=== PATIENT | female | born 1945 | race Caucasian/White ===

== ENCOUNTER → 2017-11-22 | Outpatient (CLI) | payer MEDICARE, OTHER ==
[~2017-11-22] MED LIST: ALBU90OI; Augmentin 875-1 EACH PO; CIME400; DESVENLAFAXINE25 MG PO; ESOM20; ESTR1; FLUSAL2505; LEVSOD88 PO; LOSARTAN-HCTZ1 EACH PO; NAPR550 PO; OMEPRAZOLE MAGN20 MG PO; ONDA8 PO; OXYACE5T PO; ZOLP10 PO; Zofran Odt4 MG SL
== END ==
LOC: LAB 11:07 → LAB SHORT 11:07
DX: N39.0 Urinary tract infection, site not specified (principal)
CPT/HCPCS: 87077; 87086; 87186

== ENCOUNTER 2018-07-30 06:55 | Inpatient (IN) | payer MEDICARE, OTHER ==
[~2018-07-30] VITALS: Ht 165.1 cm; Wt 79.4 kg
[~2018-07-30 06:55] MED LIST changes: +Flagyl500 MG PO; +OSCIMIN0.125 M1 PO; +[UNRECOGNIZED DRUG - OTHER] PO
--- NOTE | 2018-07-30 09:25 | NUR ---
Ambulatory in Day Surgery Surgical site prepped with 2% Chlorhexidine cloth wipe. Patient states colon prep results clear. History, Chart, Medications and Allergies reviewed before start of procedure.Lungs clear T/O to Auscultation. Patient confirms NPO status and agrees with scheduled surgery. Pre-Op teaching done. Pt verbalizes understanding. Patient reports completing Chlorhexadine shower X2 prior to admission to hospital. CONFIRMS NPO/PREP W/BOWL PREP AND ABX/SHOWERS AND PROCEDURE
--- NOTE | 2018-07-30 17:15 | NUR ---
ARRIVED TO ROOM VIA BED FROM PACU S/P LAP RIGHT EDITH COLECTOMY. PT DROWSY AND ORIENTED. STATES PAIN 6-7/10 AND STILL HAVING SOME NAUSEA. EPIDURAL IN PLACE AND SECURED BUT NUMBNESS AT TOP OF THIGHS. ABD STERI STRIPS INTACT WITH MIDLINE PROVENA AND ABD BINDER ON. IVF AND IV ABX INFUSING. ZEPEDA DRAINING C/Y URINE. CALLED DR. HALL AND OBTAINED NEW ORDER FOR PHENERGAN. FAMILY PRESENT. CALL LIGHT IN REACH.
--- NOTE | 2018-07-30 17:41 | NUR ---
DOING MUCH BETTER. 12.5MG MORE OF PHENERGAN WAS GIVEN AND STATES PAIN IS MINIMAL BUT STILL RATES IT 12/16. PT IS DOZING OFF/ON. VS REMAIN STABLE. CURRENTLY ON 2L NC. FAMILY IS PRESENT. CALL LIGHT IN REACH.
--- NOTE | 2018-07-31 01:34 | NUR ---
0134: EPIDURAL ASSESMENT WNL AND PT DENIES PAIN AT THIS TIME. SENSATIONS DECREASED T8-L3. PT TOLERATING SIPS AND ICE CHIPS. ZEPEDA PATENT WITH MINIMAL YELLOW URINE OUTPUT, WILL CONTINUE TO MONITOR. CALL LIGHT IN REACH..
--- NOTE | 2018-07-31 03:24 | NUR ---
RN NOTIFIED OF URINE OUTPUT AND COLOR.
[2018-07-31 04:40] LABS: BASOPHILS PERCENT AUTO 0 % (0-2); EOSINOPHILS PERCENT AUTO 0 % (0-6); Hematocrit 33.9 % (33.0-51.0); Hemoglobin 10.7 g/dL (11.5-16.0); IMMATURE GRAN ABSOLUTE AUTO 0.03 K/mm3 (0.00-0.10); IMMATURE GRAN PERCENT AUTO 0 % (0-1); LYMPHOCYTES ABSOLUTE AUTO 1.18 K/mm3 (0.84-5.20); LYMPHOCYTES PERCENT AUTO 13 % (21-46); MONOCYTES ABSOLUTE AUTO 1.03 K/mm3 (0.16-1.47); MONOCYTES PERCENT AUTO 11 % (4-13); Mean Corpuscular HGB 29.3 pg (26.0-34.0); Mean Corpuscular HGB Conc 31.6 g/dL (31.5-36.5); Mean Corpuscular Volume 93 fL (80-100); Mean Platelet Volume 9.2 fL (9.1-12.4); NEUTROPHILS ABSOLUTE AUTO 7.18 K/mm3 (1.96-9.15); NEUTROPHILS PERCENT AUTO 76 % (41-73); Platelet Count 350 K/mm3 (150-400); RDW Coefficient Variation 12.7 % (11.7-14.2); RDW Standard Deviation 43.7 fL (35.1-46.3); Red Blood Cell Count 3.65 M/mm3 (3.80-5.20); White Blood Cell Count 9.42 K/mm3 (4.00-11.30)
[2018-07-31 04:49] LABS: Bun/Creatinine Ratio 16.5 (12.0-20.0); Calcium, Blood 7.8 mg/dL (8.5-10.1); Creatinine, Blood 1.03 mg/dL (0.40-1.00); Potassium, Blood 3.7 mmol/L (3.5-5.5)
--- NOTE | 2018-07-31 06:52 | NUR ---
SUMMARY: POD [address] HALL. HOURLY DERMATOMES CHECKS WITH EPIDURAL UNTIL 1630 THIS DAY. PT PAIN WELL CONTROLLED WITH EPIDURAL PRN TORDAL X1 THIS SHIFT. PT TOLERATING SIPS AND CHIPS AND DENIES NAUSEA. ZEPEDA OUTPUT CLEAR, YELLOW URINE AND WOUND VAC TUBING REMAINS EMPTY. PT VSS, AFEBRILE AND WEAK COUGH EFFORT. 2L O2 VIA NC WHILE ASLEEP TO MAINTAIN SPO2>92%. CONTINUE TO MONITOR FOR PAIN AND OUTPUT.
--- NOTE | 2018-07-31 18:00 | NUR ---
shift summary: vss, no acute changes. pt tolerated po intake of clear liquids per md order, no n/v. pt's q1 hr epidural vss and complete. pt's dermatome checks show full feeling beginning of shift. approx 1400 pt reports R leg numb and unable to move. reported to MD. pt states pain controlled per epidural orders. pt remained a/o x 4, pleasant/cooperative. multiple family members and friends visited this shift. pt up in chair for lunch and dinner. carter catheter remained patent/draining dark tea urine, >400 ml. fluids per mar continued.
--- NOTE | 2018-08-01 07:34 | NUR ---
SUMMARY: POD [address] HALL. VSS, AFEBRILE, 2L O2 VIA NC WHILE ASLEEP. TOLERATING CLEAR LIQ DIET, DENIES NAUSEA, HYPOACTIVE BT X4 AND PASSING GAS. SURGICAL DRESSINGS APPEAR & DRAIN APPEAR C/D/I AND COVERED WITH ABD BINDER. PT DID NOT SLEEP WELL, REPORTS NIGHTMARES. ANTICIPATE PT/OT LATER THIS DAY AND PROBABLE DC LATER.
--- NOTE | 2018-08-01 18:14 | NUR ---
SHIFT SUMMARY PAIN HAS BEEN MANAGED WITH EPIDURAL THIS SHIFT. PT CONTINUES TO HAVE NUMBNESS TO HER R THIGH R/T THE EPIDURAL; RATE WAS DECREASED IN AN EFFORT TO REDUCE NUMBNESS. PLAN FOR EPIDURAL TO BE REMOVED TOMORROW. PT IS PASSING FLATUS. VSS. WILL CONTINUE TO MONITOR UNTIL REPORT TO ONCOMING RN.
--- NOTE | 2018-08-01 23:00 | NUR ---
PT REP NUMBNESS FROM RIGHT HIP TO KNEE. RLE IS WEAKER THAN LEFT. PT HAS FULL SENSATION TO ABD. EPIDURAL SITE WNL.
--- NOTE | 2018-08-02 01:23 | NUR ---
O2 SATS: PT REMOVED NC DURING SLEEP, PT O2 NOTED TO BE 83-84% ON RA WHILE SLEEPING. NC REPLACED, O2 INC TO 3L TO KEEPS SAT 90-92%. RESP E/U, OTHER VSS. WILL CONT TO MONITOR AND TITRATE PRN
--- NOTE | 2018-08-02 05:12 | NUR ---
POD 3 S/P LAP COLECTOMY. PT VSS T/O NIGHT, PT DID REQUIRE 2-3L O2NC WHILE SLEEPING TO KEEP SATS >90% DRESSING CDI. EPIDURAL SITE WNL. PT REP NO CHANGES IN SENSATION TO RLE. PT REP PAIN PRESTON W/EPIDURAL AND TORADOL. PT UP OOB W/FWW+2 ASSIST R/T WEAKNESS. PLAN TO D/C EPIDURAL THIS AM. PT USING CALL LIGHT FOR ASSISTANCE, WILL CONT TO MONITOR UNTIL REP GIVEN TO ONCOMING RN.
--- NOTE | 2018-08-02 18:41 | NUR ---
SHIFT SUMMARY PAIN HAS BEEN MANAGED WITH PO PAIN MEDICATION SINCE EPIDURAL WAS REMOVED. SHE HAS TOLERATED FULL LIQUID DIET WELL. SHE CONTINUES TO PASS FLATUS. SHE WAS ABLE TO AMBULATE IN THE [place] WITH ENCOURAGEMENT. ZEPEDA CATH OUT AT 1500. WILL CONTINUE TO MONITOR.
--- NOTE | 2018-08-03 06:10 | NUR ---
NO CHANGES THIS SHIFT. PAIN WELL MANAGED WITH PRN PAIN MEDS. AMBULATED TO BATHROOM SEVERAL TIMES THROUGHOUT SHIFT, TOLERATED WELL. GOOD URINE OUTPUT NOTED SINCE ZEPEDA REMOVAL. DENIES PAIN, DISCOMFORT, OR FURTHER NEEDS AT THIS TIME. SAFETY MEASURES IN PLACE. WILL CONTINUE TO MONITOR.
--- NOTE | 2018-08-03 18:06 | NUR ---
SHIFT SUMMARY PT EATING AND DRINKING. PT BEEN RESTING MOST OF DAY. PT BEEN UP OOB AT TIMES. PT USING CALL LIGHT APPR. YVES MCKINNON TO SEE PT TODAY. PT BEEN ASSISTED WITH ADL'S PRN.
--- NOTE | 2018-08-03 20:15 | NUR ---
MEDICATED FOR PAIN PER MD ORDERS, SAFETY MEASURES IN PLACE. WILL CONTINUE TO MONITOR.
--- NOTE | 2018-08-04 04:58 | NUR ---
NO CHANGES THIS SHIFT. PAIN WELL MANAGED WITH PRN PAIN MEDS. STATES THAT SHE IS LOOKING FORWARD TO GOING HOME SOON. DENIES PAIN, DISCOMFORT, OR FURTHER NEEDS AT THIS TIME. SAFETY MEASURES IN PLACE. WILL CONTINUE TO MONITOR.
--- NOTE | 2018-08-04 12:18 | NUR ---
DR HALL RECENTLY HERE TO SEE PT.
--- NOTE | 2018-08-04 18:11 | NUR ---
SHIFT SUMMARY PT EATING AND DRINKING. PT HAVING NAUSEA OFF AND ON. PT HAD SHOWER TODAY. PT BEEN ASSISTED WITH ADL'S AND MED FOR PAIN. DR HALL IN TO SEE PT TODAY.
--- NOTE | 2018-08-05 06:16 | NUR ---
NO CHANGES THIS SHIFT. NO C/O PAIN THIS SHIFT. NAUSEA MANAGED WITH ODT ZOFRAN. STATES THAT SHE IS LOOKING FORWARD TO GOING HOME SOON. DENIES PAIN, DISCOMFORT, OR FURTHER NEEDS AT THIS TIME. SAFETY MEASURES IN PLACE. WILL CONTINUE TO MONITOR.
[2018-08-05] MEDS ORDERED: HYDR1TAB94 PO (16:24)
[2018-08-05] MEDS ORDERED: ONDA4ODT MM (16:24)
--- NOTE | 2018-08-05 17:02 | NUR ---
DISCHARGE PT PROVIDED WITH WRITTEN AND VERBAL DISCHARGE INSTRUCTIONS. SHE REPORTED UNDERSTANDING AFTER QUESTIONS WERE ANSWERED. VSS. PT ESCORTED OUT IN W/C BY KEIRY PAZ.
== END 2018-08-05 17:00 | disposition home or self-care (01) | DRG 331 ==
LOC: SURS 06:55 → PRE IP 08:30 → SURS 16:07
PROVIDERS: ADMIT Surgery
PROC: 0DTF4ZZ Resection of Right Large Intestine, Percutaneous Endoscopic Approach (ICD-10-PCS; principal; 2018-07-30 10:15)
DX: R93.5 Abnormal findings on diagnostic imaging of other abdominal regions, including retroperitoneum (principal); I10 Essential (primary) hypertension; K21.9 Gastro-esophageal reflux disease without esophagitis; E03.9 Hypothyroidism, unspecified; Z88.8 Allergy status to other drugs, medicaments and biological substances
CPT/HCPCS: 36415; 80048; 85025; J0295; J1100; J1650; J1885; J2250; J2310; J2370; J2405; J2550; J2710; J3010; J7120

== ENCOUNTER → 2019-04-20 | Outpatient (CLI) | payer MEDICARE, OTHER ==
[~2019-04-20] MED LIST changes: +HYDR1TAB94 PO; +ONDA4ODT MM
== END | disposition home or self-care (01) ==
LOC: LAB SHORT 12:42 → LAB 12:42
DX: N39.0 Urinary tract infection, site not specified (principal)
CPT/HCPCS: 87077; 87086; 87186

== ENCOUNTER → 2020-10-02 | Outpatient (CLI) | payer MEDICARE, OTHER | END | disposition home or self-care (01) | LOC: LAB 16:22 → LAB SHORT 16:22 | DX: B35.1 Tinea unguium (principal) | CPT/HCPCS: 87102; 87106 ==

== ENCOUNTER → 2022-12-20 | Outpatient (CLI) | payer MEDICARE, OTHER | END | disposition home or self-care (01) | LOC: LAB SHORT 10:50 | DX: Z13.220 Encounter for screening for lipoid disorders (principal); Z13.228 Encounter for screening for other metabolic disorders; Z13.21 Encounter for screening for nutritional disorder; Z13.1 Encounter for screening for diabetes mellitus; K21.00 Gastro-esophageal reflux disease with esophagitis, without bleeding; M25.50 Pain in unspecified joint; R53.83 Other fatigue; R63.5 Abnormal weight gain | CPT/HCPCS: 85651 ==

== ENCOUNTER 2023-02-11 13:33 | Day surgery (SDC) | payer MEDICARE, OTHER ==
[~2023-02-11] VITALS: Ht 165.1 cm; Wt 76.9 kg
--- NOTE | 2023-02-11 14:39 | NUR ---
02/11/23 1439 Zandra Chen IN AT 1433 NOLAN IN AT 1434
[2023-02-11 15:37] VITALS: BP 134/63
--- NOTE | 2023-02-11 15:54 | NUR ---
02/11/23 1554 WIN FLORES IV REMOVED. PRESTON WELL. CANNULA INTACT. WNL
== END 2023-02-11 15:54 | disposition home or self-care (01) ==
LOC: ORSCSDS 13:33
PROVIDERS: Ophthalmology
PROC: 08RJ3JZ Replacement of Right Lens with Synthetic Substitute, Percutaneous Approach (ICD-10-PCS; principal; 2023-02-11 15:00)
DX: H25.13 Age-related nuclear cataract, bilateral (principal); H52.201 Unspecified astigmatism, right eye; E03.9 Hypothyroidism, unspecified; I10 Essential (primary) hypertension; Z86.73 Personal history of transient ischemic attack (TIA), and cerebral infarction without residual deficits; K21.9 Gastro-esophageal reflux disease without esophagitis; F32.A Depression, unspecified; Z79.899 Other long term (current) drug therapy
CPT/HCPCS: J2250; J3010; J3301; J7040; V2632

== ENCOUNTER 2023-02-18 11:46 | Day surgery (SDC) | payer MEDICARE, OTHER ==
[~2023-02-18] VITALS: Ht 165.1 cm; Wt 75.8 kg
--- NOTE | 2023-02-18 12:11 | NUR ---
02/18/23 1211 Martinez Rider CALL LIGHT WITHIN REACH. TETRACAINE IN LEFT EYE AT 1204 AND PLEDGETT IN AT 1206
[2023-02-18 13:35] VITALS: BP 113/63
--- NOTE | 2023-02-18 14:01 | NUR ---
02/18/23 1401 Devante Ross IV REMOVED INTACT. SITE WNL.
== END 2023-02-18 13:54 | disposition home or self-care (01) ==
LOC: ORSCSDS 11:46
PROVIDERS: Ophthalmology
PROC: 08RK3JZ Replacement of Left Lens with Synthetic Substitute, Percutaneous Approach (ICD-10-PCS; principal; 2023-02-18 13:00)
DX: H25.12 Age-related nuclear cataract, left eye (principal); H52.202 Unspecified astigmatism, left eye; Z96.1 Presence of intraocular lens; K21.9 Gastro-esophageal reflux disease without esophagitis; I10 Essential (primary) hypertension; E03.9 Hypothyroidism, unspecified; Z86.73 Personal history of transient ischemic attack (TIA), and cerebral infarction without residual deficits; Z79.899 Other long term (current) drug therapy
CPT/HCPCS: J2001; J2250; J3010; J3301; J7040; V2632

== ENCOUNTER → 2023-09-09 | Outpatient (CLI) | payer MEDICARE, OTHER | LOC: LAB SHORT 16:00 → LAB 16:00 | DX: N39.0 Urinary tract infection, site not specified (principal) | CPT/HCPCS: 87077; 87086; 87186 ==

== ENCOUNTER → 2023-12-01 | Outpatient (CLI) | payer MEDICARE, OTHER ==
[2023-12-01 16:26] LABS: Adenovirus F 40/41 Not Detected (NOT DETECT); Astrovirus Not Detected (NOT DETECT); Campylobacter Sp Not Detected (NOT DETECT); Cryptosporidium Not Detected (NOT DETECT); Cyclospora Cayetanensis Not Detected (NOT DETECT); E. Coli O157 Not Detected (NOT DETECT); Entamoeba Histolytica Not Detected (NOT DETECT); Enteroaggregative E. coli-EAEC Not Detected (NOT DETECT); Enteropathogenic E. coli-EPEC Not Detected (NOT DETECT); Enterotoxigenic E. coli-ETEC Not Detected (NOT DETECT); Giardia Lamblia Not Detected (NOT DETECT); Norovirus GI/GII Not Detected (NOT DETECT); Plesiomonas Shigelloides Not Detected (NOT DETECT); Rotavirus A Not Detected (NOT DETECT); Salmonella Sp Not Detected (NOT DETECT); Sapovirus Not Detected (NOT DETECT); Shiga Toxin-prod E. coli-STEC Not Detected (NOT DETECT); Shigella/Enteroin E. coli-EIEC Not Detected (NOT DETECT); Vibrio Cholerae Not Detected (NOT DETECT); Vibrio Sp Not Detected (NOT DETECT); Yersinia Enterocolitica Not Detected (NOT DETECT)
== END | disposition home or self-care (01) ==
LOC: LAB SHORT 10:35 → LAB 10:35
PROVIDERS: Physician Assistant
DX: R19.7 Diarrhea, unspecified (principal)
CPT/HCPCS: 87507

== ENCOUNTER 2025-01-26 13:42 | Emergency (ER) | payer MEDICARE, OTHER ==
[~2025-01-26] VITALS: Ht 165.1 cm; Wt 65.8 kg
[2025-01-26 14:37] LABS: BASOPHILS ABSOLUTE AUTO 0.04 K/mm3 (0.00-0.23); BASOPHILS PERCENT AUTO 1 % (0-2); EOSINOPHILS ABSOLUTE AUTO 0.23 K/mm3 (0.00-0.68); EOSINOPHILS PERCENT AUTO 4 % (0-6); Hematocrit 33.5 % (33.0-51.0); Hemoglobin 11.1 g/dL (11.5-16.0); IMMATURE GRAN ABSOLUTE AUTO 0.02 K/mm3 (0.00-0.10); IMMATURE GRAN PERCENT AUTO 0 % (0-1); LYMPHOCYTES ABSOLUTE AUTO 1.68 K/mm3 (0.84-5.20); LYMPHOCYTES PERCENT AUTO 27 % (21-46); MONOCYTES ABSOLUTE AUTO 0.58 K/mm3 (0.16-1.47); MONOCYTES PERCENT AUTO 9 % (4-13); Mean Corpuscular HGB Conc 33.1 g/dL (31.5-36.5); Mean Corpuscular Volume 89 fL (80-100); NEUTROPHILS ABSOLUTE AUTO 3.75 K/mm3 (1.96-9.15); NEUTROPHILS PERCENT AUTO 60 % (41-73); NRBC ABSOLUTE 0.00 K/mm3 (0.00-0.02); NRBC Auto 0.0 /100 WBC (0.0-0.2); Platelet Count 378 K/mm3 (150-400); RDW Coefficient Variation 13.1 % (11.7-14.2); RDW Standard Deviation 43.2 fL (35.1-46.3)
[2025-01-26 15:11] LABS: Alanine Aminotransfer (ALT/SGP 15.0 U/L (12-78); Albumin, Blood 3.6 g/dL (3.4-5.0); Albumin/Globulin Ratio 0.9 (0.8-1.8); Anion Gap 3.0 mmol/L (3-11); Aspartate Aminotrans (AST/SGOT 13.0 U/L (12-37); Bilirubin, Total 0.5 mg/dL (0.1-1.0); Blood Urea Nitrogen 18.0 mg/dL (8-24); CO2, Blood 30.0 mmol/L (21-32); Calcium, Blood 9.0 mg/dL (8.5-10.1); Chloride, Blood 103.0 mmol/L (98-108); Creatinine, Blood 1.25 mg/dL (0.40-1.00); Globulin, Blood 3.9 g/dL (2.2-4.0); Glucose, Blood 83.0 mg/dL (70-99); Potassium, Blood 3.9 mmol/L (3.5-5.5); Sodium, Blood 132.0 mmol/L (136-145); Total Protein, Blood 7.5 g/dL (6.4-8.2)
[2025-01-26] MEDS ORDERED: NS 1,000 ML IV SCH (16:55)
[2025-01-26] MEDS ORDERED: Metoclopramide HCl 5MG / ML 2ML Vial IV ONE (16:55)
[2025-01-26] MEDS ORDERED: OLMESARTAN-HCT1 EAC5 PO (17:05)
[2025-01-26] MEDS ORDERED: VENL75ER PO (17:06)
[2025-01-26] MEDS ORDERED: BUSPIRONE HCL5 M6 PO (17:06)
[2025-01-26] MEDS ORDERED: EUTHYROX88 MC1 PO (18:04)
[2025-01-26] MEDS ORDERED: PANTOPRAZOLE SO40 M2 PO (18:04)
[2025-01-26 18:08] LABS: Source, Urine Clean Catch
[2025-01-26 18:10] LABS: Bilirubin, Urine Neg (Neg); Color, Urine Yellow (P-Yellow); Glucose Qualitative, Urine Neg (Neg); Ketones, Urine Neg (Neg); Leukocyte Esterase, Urine Neg (Neg); Protein, Urine Neg (Neg); Specific Gravity, Urine 1.010 (1.003-1.022); Urobilinogen, Urine NORM (Normal)
[2025-01-26 18:22] LABS: Red Blood Cells, Urine 0-2 /hpf (0-2); White Blood Cells, Urine 0-2 /hpf (0-5)
[2025-01-26 18:30] VITALS: BP 128/66
[2025-01-26] MEDS ORDERED: METO5A PO (18:44)
== END 2025-01-26 18:49 | disposition home or self-care (01) ==
LOC: ER 13:42
PROVIDERS: Student in an Organized Health Care Education/Training Program
DX: K52.9 Noninfective gastroenteritis and colitis, unspecified (principal); I10 Essential (primary) hypertension; Z79.899 Other long term (current) drug therapy; Z88.8 Allergy status to other drugs, medicaments and biological substances
CPT/HCPCS: 71046; 74177; 80053; 81001; 84484; 85025; 93005; 93010; 96361; 96374-59; 99285-25; J2765; J7030; Q9967